=== PATIENT | female | born 1950 | race Caucasian/White ===

== ENCOUNTER 2017-07-31 09:02 | Outpatient (CLI) | payer MEDICARE, MEDICAID ==
[2017-07-31 18:30] LABS: BASOPHILS # (AUTO) 0.1 10^3/uL (0.0-0.1); BASOPHILS % (AUTO) 1.2 %; EOSINOPHILS # (AUTO) 0.1 10^3/uL (0.0-0.7); EOSINOPHILS % (AUTO) 1.6 %; HCT - HEMATOCRIT 39.2 % (37.0-47.0); HGB - HEMOGLOBIN 12.9 g/dL (12.0-16.0); LYMPHOCYTES # (AUTO) 2.3 10^3/uL (1.5-3.5); LYMPHOCYTES % (AUTO) 50.3 %; MEAN CORPUSCULAR HEMOGLOBIN 30.2 pg (27.0-31.0); MEAN CORPUSCULAR HGB CONC 32.8 g/dL (32.0-36.0); MEAN PLATELET VOLUME 8.6 fL (7.9-10.8); MONOCYTES # (AUTO) 0.5 10^3/uL (0.0-1.0); MONOCYTES % (AUTO) 9.7 %; NEUTROPHILS # (AUTO) 1.7 10^3/uL (1.5-6.6); NEUTROPHILS % (AUTO) 37.2 %; NUCLEATED RED BLOOD CELLS AUTO 0.1 /100WBC; RED BLOOD COUNT 4.26 10^6/uL (4.20-5.40); RED CELL DISTRIBUTION WIDTH 13.5 % (12.0-15.0); UNCORRECTED WHITE BLOOD COUNT 4.7 x10^3/uL; WHITE BLOOD COUNT 4.7 x10^3/uL (4.8-10.8)
[2017-07-31 19:01] LABS: ALBUMIN/GLOBULIN RATIO 1.8 (1.0-2.2); BILIRUBIN,TOTAL 0.6 mg/dL (0.2-1.0); BUN - BLOOD UREA NITROGEN 14 mg/dL (6-20); CALCIUM 9.2 mg/dL (8.5-10.3); CARBON DIOXIDE - CO2 30 mmol/L (21-32); CHLORIDE 99 mmol/L (101-111); CHOL/HDL RATIO 3.4 (<4.4); CHOLESTEROL 276 mg/dL; CREATININE 0.5 mg/dL (0.4-1.0); GFR - MDRD 123 (>89); GLUCOSE 100 mg/dL (70-100); HDL CHOLESTEROL 81 mg/dL; LDL/HDL RATIO 2.2 (<4.4); POTASSIUM 3.8 mmol/L (3.5-5.0); SODIUM 137 mmol/L (135-145); TOTAL PROTEIN 6.2 g/dL (6.7-8.2); TRIGLYCERIDES 77 mg/dL; VLDL CHOLESTEROL 15 mg/dL
== END 2017-07-31 09:03 | disposition home or self-care (01) ==
LOC: LAB.F 09:02
PROVIDERS: ATTEND Nurse Practitioner Family
DX: R53.83 Other fatigue (principal); E03.9 Hypothyroidism, unspecified; F32.9 Major depressive disorder, single episode, unspecified; E78.5 Hyperlipidemia, unspecified
CPT/HCPCS: 36415; 80053; 80061; 84443; 85025

== ENCOUNTER 2017-08-16 13:53 | Outpatient (CLI) | payer MEDICARE, MEDICAID | END 2017-08-16 13:54 | disposition home or self-care (01) | LOC: LAB.F 13:53 | PROVIDERS: ATTEND Nurse Practitioner Family | DX: E03.9 Hypothyroidism, unspecified (principal) | CPT/HCPCS: 36415; 84439 ==

== ENCOUNTER 2018-05-18 09:58 | Outpatient (CLI) | payer MEDICARE, MEDICAID ==
[2018-05-18 17:43] LABS: BASOPHILS # (AUTO) 0.1 10^3/uL (0.0-0.1); BASOPHILS % (AUTO) 1.5 %; EOSINOPHILS # (AUTO) 0.1 10^3/uL (0.0-0.7); EOSINOPHILS % (AUTO) 1.6 %; HGB - HEMOGLOBIN 13.4 g/dL (12.0-16.0); LYMPHOCYTES # (AUTO) 1.9 10^3/uL (1.5-3.5); LYMPHOCYTES % (AUTO) 37.4 %; MEAN CORPUSCULAR HEMOGLOBIN 30.2 pg (27.0-31.0); MEAN CORPUSCULAR VOLUME 91.5 fL (81.0-99.0); MEAN PLATELET VOLUME 8.4 fL (7.9-10.8); MONOCYTES # (AUTO) 0.6 10^3/uL (0.0-1.0); MONOCYTES % (AUTO) 11.2 %; NEUTROPHILS # (AUTO) 2.4 10^3/uL (1.5-6.6); NEUTROPHILS % (AUTO) 48.3 %; PLT - PLATELET COUNT 225 10^3/uL (130-450); RED BLOOD COUNT 4.45 10^6/uL (4.20-5.40); RED CELL DISTRIBUTION WIDTH 13.8 % (12.0-15.0); WHITE BLOOD COUNT 5.1 x10^3/uL (4.8-10.8)
[2018-05-18 18:24] LABS: ALBUMIN 4.5 g/dL (3.2-5.5); ALBUMIN/GLOBULIN RATIO 2.4 (1.0-2.2); BILIRUBIN,TOTAL 0.8 mg/dL (0.2-1.0); CALCIUM 9.4 mg/dL (8.5-10.3); CREATININE 0.6 mg/dL (0.4-1.0); TOTAL PROTEIN 6.4 g/dL (6.7-8.2)
== END 2018-05-18 09:59 | disposition home or self-care (01) ==
LOC: LAB.F 09:58
PROVIDERS: ATTEND Nurse Practitioner Family
DX: R53.83 Other fatigue (principal)
CPT/HCPCS: 36415; 80053; 85025

== ENCOUNTER 2018-12-06 18:09 | Emergency (ER) | payer MEDICARE, MEDICAID ==
[2018-12-06 18:25] VITALS: BP 146/102
[2018-12-06] MEDS ORDERED: IBUPROFEN 800 MG TABLET PO STA (18:54)
--- NOTE | 2018-12-06 18:59 | ED Physician Documentation ---
PD HPI UPPER EXT INJURY - Stated complaint Stated Complaint: LEFT WRIST PAIN - Chief complaint Chief Complaint: Ext Problem - History obtained from History obtained from: Patient - History of Present Illness Location: Left, Wrist Type of injury: Blunt / blow (hit on a table) Where injury occurred: Home Timing - onset: Yesterday Timing - duration: Days (2) Timing - details: Gradual onset Pain level max: 5 Pain level now: 3 Improved by: Rest Worsened by: Moving Associated symptoms: Swelling, Discolored (redness). No: Weakness, Numbness, Tingling Contributing factors: No: Anticoagulated, Prior ortho surgery, Prosthetic joint Recently seen: Not recently seen Review of Systems Constitutional: denies: Fever, Chills Skin: denies: Rash Musculoskeletal: denies: Neck pain, Back pain PD PAST MEDICAL HISTORY - Past Medical History Past Medical History: Yes Endocrine/Autoimmune: Other Other Past Medical History: chronic fatigue syndrome, fybromyalgia. - Allergies Allergies/Adverse Reactions: Allergies Allergy/AdvReac Type Severity Reaction Status Date / Time No Known Drug Allergies Allergy Verified 12/06/18 18:25 - Social History Does the pt smoke?: No Smoking Status: Never smoker Does the pt drink ETOH?: No Does the pt have substance abuse?: No PD ED PE NORMAL - Vitals Vital signs reviewed: Yes - General General: Alert and oriented X 3, No acute distress - HEENT HEENT: Moist mucous membranes - Derm Derm: Warm and dry - Extremities Extremities: Other (L wrist - Mild swelling and erythema to the volar aspect of the distal ulna of the left wrist. There is no bony tenderness over the hand, wrist radius or ulna. Full range of motion of all fingers. Neurovascular intact) - Neuro Neuro: Alert and oriented X 3 Results - Vitals Vitals: Vital Signs - 24 hr 12/06/18 18:20 Temperature 36.3 C L Heart Rate 80 Respiratory 16 Rate Blood Pressure 146/102 H O2 Saturation 98 Oxygen O2 Source Room air PD MEDICAL DECISION MAKING - ED course Complexity details: considered differential, d/w patient ED course: Patient appears to have a soft tissue contusion, possible tendon injury, but not significant enough to cause any functional limitations of the hand or wrist. She refuses an x-ray here. Will place in a Velcro wrist splint and follow-up with her doctor. Patient counseled regarding signs and symptoms for which I believe and urgent re-evaluation would be necessary. Patient with good understanding of and agreement to plan and is comfortable going home at this time This document was made in part using voice recognition software. While efforts are made to proofread this document, sound alike and grammatical errors may occur. Departure - Departure Disposition: 01 Home, Self Care Clinical Impression: Contusion of wrist, left Qualifiers: Encounter type: initial encounter Qualified Code(s): S60.212A - Contusion of left wrist, initial encounter Condition: Good Instructions: ED Contusion Upper Ext Follow-Up: Pearl Borjas ARNP [Primary Care Provider] - Within 1 week Comments: Wear the splint for comfort. You can use Motrin or Tylenol as needed for pain. Follow-up with your doctor within 1 week for repeat evaluation. As we discussed by not doing an x-ray, we may miss a fracture. As we also discussed this may be an early infection, monitor closely for worsening redness or swelling. Do not wear the splint for over a week. Discharge Date/Time: 12/06/18 19:12
== END 2018-12-06 19:12 | disposition home or self-care (01) ==
LOC: ED 18:09
DX: S60.212A Contusion of left wrist, initial encounter (principal); W22.09XA Striking against other stationary object, initial encounter; Y92.009 Unspecified place in unspecified non-institutional (private) residence as the place of occurrence of the external cause
CPT/HCPCS: 99282; 99283; A9270

== ENCOUNTER 2019-04-02 07:57 | Outpatient (CLI) | payer MEDICARE, MEDICAID ==
[2019-04-02 10:12] LABS: BASOPHILS # (AUTO) 0.1 10^3/uL (0.0-0.1); BASOPHILS % (AUTO) 1.7 %; EOSINOPHILS # (AUTO) 0.1 10^3/uL (0.0-0.7); EOSINOPHILS % (AUTO) 2.2 %; HGB - HEMOGLOBIN 13.2 g/dL (12.0-16.0); LYMPHOCYTES % (AUTO) 48.9 %; MEAN CORPUSCULAR HEMOGLOBIN 30.6 pg (27.0-31.0); MEAN CORPUSCULAR VOLUME 95.4 fL (81.0-99.0); MEAN PLATELET VOLUME 9.8 fL (7.9-10.8); MONOCYTES # (AUTO) 0.5 10^3/uL (0.0-1.0); MONOCYTES % (AUTO) 11.8 %; NEUTROPHILS # (AUTO) 1.5 10^3/uL (1.5-6.6); NEUTROPHILS % (AUTO) 35.2 %; PLT - PLATELET COUNT 238 10^3/uL (130-450); RED BLOOD COUNT 4.32 10^6/uL (4.20-5.40); RED CELL DISTRIBUTION WIDTH 14.2 % (12.0-15.0); WHITE BLOOD COUNT 4.2 x10^3/uL (4.8-10.8)
[2019-04-02 10:34] LABS: ALBUMIN 4.1 g/dL (3.2-5.5); ALBUMIN/GLOBULIN RATIO 1.9 (1.0-2.2); ALKALINE PHOSPHATASE 38 IU/L (42-121); ALT ALANINE AMINOTRANSFERASE 15 IU/L (10-60); AST ASPARTATE AMINOTRANSFERASE 17 IU/L (10-42); BILIRUBIN,TOTAL 0.6 mg/dL (0.2-1.0); BUN - BLOOD UREA NITROGEN 10 mg/dL (6-20); CALCIUM 9.3 mg/dL (8.5-10.3); CARBON DIOXIDE - CO2 27 mmol/L (21-32); CHLORIDE 101 mmol/L (101-111); CHOL/HDL RATIO 5.5 (<4.4); CHOLESTEROL 467 mg/dL; CREATININE 0.6 mg/dL (0.4-1.0); GFR - MDRD 99 (>89); GLUCOSE 107 mg/dL (70-100); HDL CHOLESTEROL 85 mg/dL; LDL CHOLESTEROL,CALCULATED 358 mg/dL; LDL/HDL RATIO 4.2 (<4.4); SODIUM 137 mmol/L (135-145); TOTAL PROTEIN 6.3 g/dL (6.7-8.2); VLDL CHOLESTEROL 24 mg/dL
[2019-04-02 10:35] LABS: CRP - C-REACTIVE PROTEIN < 1.0 mg/dL (0-1.0)
== END 2019-04-02 07:58 | disposition home or self-care (01) ==
LOC: LAB.S 07:57
PROVIDERS: ATTEND Registered Nurse
DX: M79.7 Fibromyalgia (principal); R53.83 Other fatigue; Z91.018 Allergy to other foods; J30.89 Other allergic rhinitis; E78.5 Hyperlipidemia, unspecified
CPT/HCPCS: 36415; 80053; 80061; 82306; 83036; 83721; 84443; 85025; 86140

== ENCOUNTER 2019-09-25 08:58 | Outpatient (CLI) | payer MEDICARE, MEDICAID ==
[2019-09-25 17:15] LABS: BASOPHILS # (AUTO) 0.1 10^3/uL (0.0-0.1); BASOPHILS % (AUTO) 1.2 %; EOSINOPHILS # (AUTO) 0.1 10^3/uL (0.0-0.7); EOSINOPHILS % (AUTO) 1.9 %; HGB - HEMOGLOBIN 13.1 g/dL (12.0-16.0); LYMPHOCYTES # (AUTO) 2.2 10^3/uL (1.5-3.5); LYMPHOCYTES % (AUTO) 54.1 %; MEAN CORPUSCULAR HEMOGLOBIN 29.1 pg (27.0-31.0); MEAN CORPUSCULAR HGB CONC 30.5 g/dL (32.0-36.0); MEAN CORPUSCULAR VOLUME 95.3 fL (81.0-99.0); MEAN PLATELET VOLUME 9.9 fL (7.9-10.8); MONOCYTES # (AUTO) 0.4 10^3/uL (0.0-1.0); MONOCYTES % (AUTO) 10.2 %; NEUTROPHILS # (AUTO) 1.3 10^3/uL (1.5-6.6); NEUTROPHILS % (AUTO) 32.6 %; PLT - PLATELET COUNT 223 10^3/uL (130-450); RED CELL DISTRIBUTION WIDTH 13.8 % (12.0-15.0); WHITE BLOOD COUNT 4.1 x10^3/uL (4.8-10.8)
[2019-09-25 17:35] LABS: ALBUMIN 4.2 g/dL (3.2-5.5); ALBUMIN/GLOBULIN RATIO 1.9 (1.0-2.2); ALKALINE PHOSPHATASE 36 IU/L (42-121); ALT ALANINE AMINOTRANSFERASE 19 IU/L (10-60); AST ASPARTATE AMINOTRANSFERASE 19 IU/L (10-42); BILIRUBIN,TOTAL 0.7 mg/dL (0.2-1.0); BUN - BLOOD UREA NITROGEN 10 mg/dL (6-20); CALCIUM 9.1 mg/dL (8.5-10.3); CARBON DIOXIDE - CO2 29 mmol/L (21-32); CHLORIDE 102 mmol/L (101-111); CHOL/HDL RATIO 3.8 (<4.4); CHOLESTEROL 376 mg/dL; CREATININE 0.5 mg/dL (0.4-1.0); GFR - MDRD 122 (>89); GLUCOSE 98 mg/dL (70-100); HDL CHOLESTEROL 98 mg/dL; LDL CHOLESTEROL,CALCULATED 261 mg/dL; LDL/HDL RATIO 2.7 (<4.4); SODIUM 138 mmol/L (135-145); TOTAL PROTEIN 6.4 g/dL (6.7-8.2); VLDL CHOLESTEROL 17 mg/dL
[2019-09-25 17:45] LABS: CRP - C-REACTIVE PROTEIN < 1.0 mg/dL (0-1.0)
== END 2019-09-25 08:59 | disposition home or self-care (01) ==
LOC: LAB.S 08:58
PROVIDERS: ATTEND Registered Nurse
DX: E78.5 Hyperlipidemia, unspecified (principal); I10 Essential (primary) hypertension; J45.909 Unspecified asthma, uncomplicated; Z91.018 Allergy to other foods; A69.20 Lyme disease, unspecified; R53.82 Chronic fatigue, unspecified; M79.7 Fibromyalgia
CPT/HCPCS: 36415; 80053; 80061; 81599; 82172; 82607; 83721; 84443; 85025; 86140

== ENCOUNTER 2020-06-01 10:35 | Outpatient (CLI) | payer MEDICARE, MEDICAID | END 2020-06-01 10:36 | disposition home or self-care (01) | LOC: COV 10:35 | PROVIDERS: ATTEND Ophthalmology | DX: Z01.812 Encounter for preprocedural laboratory examination (principal); Z20.828 Contact with and (suspected) exposure to other viral communicable diseases; H25.11 Age-related nuclear cataract, right eye ==

== ENCOUNTER 2020-06-04 07:27 | Day surgery (SDC) | payer MEDICARE, MEDICAID ==
[~2020-06-04 07:27] MED LIST: KETOROLAC 0.45% OPHTH DROPS ONE; PHENYLEPHRINE 2.5% OPHTH 2 ML DROPS ONE; PROPARACAINE 0.5% OPHTH DROPS 15 ML ONE
[2020-06-04] MEDS ORDERED: LACTATED RINGERS 500 ML IV ONE ×2 (08:01→08:42)
--- NOTE | 2020-06-04 08:05 | ANESTHESIA ---
Pre-Anesthesia VS, & Labs - Diagnosis R Nuclear Sclerotic Cataract - Procedure Extraction R cataract w/IOL Vital Signs: Temp Pulse Resp BP Pulse Ox 36.6 C 80 18 149/60 H 100 06/04/20 07:44 06/04/20 07:44 06/04/20 07:44 06/04/20 07:44 06/04/20 07:44 Height: 5 ft 10 in Weight (kg): 66.9 kg Body Mass Index: 21.1 BMI Classification: Healthy weight - Is Patient ?: No Home Medications and Allergies Home Medications: Ambulatory Orders No Known Home Medications 06/03/20 No Known Home Medications 06/03/20 Allergies/Adverse Reactions: Allergies Allergy/AdvReac Type Severity Reaction Status Date / Time No Known Drug Allergies Allergy Verified 12/06/18 18:25 Anes History & Medical History - Anesthetic History Anesthesia Complications: reports: No previous complications Family history of Anesthesia Complications: Denies Family history of Malignant Hyperthermia: Denies - Medical History Cardiovascular: reports: None Pulmonary: reports: None Gastrointestinal: reports: None Urinary: reports: None Musculoskeletal: reports: None Endocrine/Autoimmune: reports: None Skin: reports: None Smoking Status: Never smoker History of Cancer?: No - Surgical History General: Colonoscopy Eyes Ears Nose Throat (EENT): Tonsil/Adenoidectomy Cardiothoracic: Other Gynecologic: Tubal ligation Exam General: Alert, Oriented x3, Cooperative Mouth Openin Fingerbreadth Neck Mobility: Normal Mallampati classification: II Respiratory: Lungs clear, No respiratory distress Cardiovascular: Regular rate Neurological: Normal speech Mental/Cognitive Status: Alert/Oriented X3, Normal for patient Cognitive Status: Within normal limits Plan Anesthesia Type: MAC Consent for Procedure(s) Verified and Reviewed: Yes Code Status: Attempt Resuscitation ASA classification: 2-Mild systemic disease Is this case an emergency?: No
[2020-06-04] MEDS ORDERED: BRIMONIDINE 0.2% OPHTH DROPS 5 ML OPTH ONE ×2 (08:12→08:24)
[2020-06-04] MEDS ORDERED: CHONDR SULF/HYALURONATE SYRINGE IO ONE ×2 (08:13→08:24)
[2020-06-04] MEDS ORDERED: EPINEPHrine 1 MG/ML AMP IR ONE ×2 (08:13→08:24)
[2020-06-04] MEDS ORDERED: TRIAMCIN/MOXIFLOX OPHTHALMIC 0.6 ML VIAL IO ONE ×3 (08:13→10:32)
[2020-06-04] MEDS ORDERED: BSS/LIDOCAINE/EPINEPHRINE 1 ML SYRINGE IO ONE ×2 (08:13→08:24)
[2020-06-04] MEDS ORDERED: TIMOLOL 0.5% OPHTH DROPS OPTH ONE ×2 (08:13→08:24)
[2020-06-04] MEDS ORDERED: PROPARACAINE 0.5% OPHTH DROPS 15 ML EACHEYE ONE ×2 (08:14→08:24)
[2020-06-04] MEDS ORDERED: VANCOMYCIN OPHTHALMI 8MG/0.8ML 8 MG/0.8 ML SYRINGE IO ONE ×3 (08:14→10:33)
[2020-06-04] MEDS ORDERED: MIDAZOLAM 2 MG/2 ML VIAL IVP ONE (08:23)
[2020-06-04 09:00] VITALS: BP 124/65
[2020-06-04] MEDS ORDERED: TIMOLOL 0.5% OPHTH DROPS ONE (10:33)
[2020-06-04] MEDS ORDERED: BRIMONIDINE 0.2% OPHTH DROPS 5 ML ONE (10:33)
[2020-06-04] MEDS ORDERED: BSS/LIDOCAINE/EPINEPHRINE 1 ML SYRINGE ONE (10:33)
--- NOTE | 2020-06-04 11:09 | ANESTHESIA POST OP EVALUATION ---
Anesthesia Post Eval - Post Anesthesia Eval Vitals: Last Vital Signs Temp 36.1 C L 06/04/20 08:59 Pulse 62 06/04/20 08:59 Resp 11 L 06/04/20 08:59 BP 124/65 06/04/20 08:59 Pulse Ox 100 06/04/20 08:59 CV Function Including HR & BP: positive: Stable Pain Control: positive: Satisfactory Nausea & Vomiting: positive: Negative Mental Status: positive: Baseline Respiratory Status: Airway Patent Hydration Status: Satisfactory Anesthesia Complications: positive: None
--- NOTE | 2020-06-04 15:54 | OPERATIVE REPORT ---
DATE OF SERVICE: 06/04/2020 Physician: Abdelrahman Jarvis MD PREOPERATIVE DIAGNOSIS: Visually significant cataract, right eye. This was her first cataract surgery. POSTOPERATIVE DIAGNOSIS: Visually significant cataract, right eye. This was her first cataract surgery. PROCEDURE: Phacoemulsification with posterior chamber intraocular lens implant, right eye. SURGEON: Abdelrahman Jarvis MD ANESTHESIA: Monitored anesthesia care. COMPLICATIONS: None. OPERATIVE INDICATIONS: This is a 70-year-old woman with progressive vision loss in the right eye due to 2+ nuclear sclerotic cataract. Best corrected visual acuity was 20/40, with glare to 20/250 in the right eye. Indications for surgery are overall decrease in vision, difficulty seeing words on a computer screen, difficulty reading, difficulty seeing words, closed caption or game scores on TV, difficulty seeing street signs, difficulty driving in low light or at night, difficulty driving at night because of headlights from other vehicles, and difficulty with glare or bright lights in any situation. She was consented at length concerning risks and benefits of cataract surgery, after which she expressed a desire to proceed with surgery. OPERATIVE PROCEDURE: The patient was taken to OR #3 and placed under monitored anesthesia care. A surgical timeout was conducted confirming correct patient, correct procedure, and correct surgical site. She was given topical anesthesia, and prepped and draped in the usual sterile fashion. The eye was entered at the 12 and 9 o'clock positions. Intracameral Shugarcaine was injected into the anterior chamber, followed by Viscoat. A continuous-tear curvilinear capsulorrhexis was performed. The nucleus was hydrodissected and phacoemulsified. The cortex was evacuated using automated infusion and aspiration. Provisc was injected in the capsular bag, and a 22.0 diopter toric intraocular lens was inserted into the bag and rotated to axis 076 that had been premarked on the cornea in the PACU with a corneal marker. Infusion and aspiration was used to evacuate the viscoelastic materials. The eye was inflated to physiologic pressure using balanced salt solution and found to be watertight. Approximately 0.25 mL of a mixture of triamcinolone and moxifloxacin was injected transsclerally into the vitreous in inferotemporal quadrant. An additional 0.55 mL of a mixture of triamcinolone, moxifloxacin, and vancomycin was injected subconjunctivally in the superior quadrant for infection and inflammation prophylaxis. Wound integrity was checked with Weck- Hayley sponges. The IOL was again verified to be in the proper axis of 076. The patient was taken from the Operating Room in good condition and given postoperative instructions. TD: 06/04/2020 08:51 FREDDIE
== END 2020-06-04 07:28 | disposition home or self-care (01) ==
LOC: SDS 07:27
PROVIDERS: ATTEND Ophthalmology
DX: H25.11 Age-related nuclear cataract, right eye (principal); J45.909 Unspecified asthma, uncomplicated
CPT/HCPCS: 66984; A9270; J3490; J7120; V2632

== ENCOUNTER 2020-06-09 08:33 | Outpatient (CLI) | payer MEDICARE, MEDICAID ==
[2020-06-09 15:14] LABS: BASOPHILS # (AUTO) 0.1 10^3/uL (0.0-0.1); BASOPHILS % (AUTO) 1.2 %; EOSINOPHILS # (AUTO) 0.1 10^3/uL (0.0-0.7); HGB - HEMOGLOBIN 12.4 g/dL (12.0-16.0); LYMPHOCYTES # (AUTO) 2.2 10^3/uL (1.5-3.5); LYMPHOCYTES % (AUTO) 54.3 %; MEAN CORPUSCULAR HEMOGLOBIN 29.6 pg (27.0-31.0); MEAN CORPUSCULAR HGB CONC 31.2 g/dL (32.0-36.0); MEAN CORPUSCULAR VOLUME 94.7 fL (81.0-99.0); MEAN PLATELET VOLUME 9.8 fL (7.9-10.8); MONOCYTES # (AUTO) 0.3 10^3/uL (0.0-1.0); MONOCYTES % (AUTO) 8.1 %; NEUTROPHILS # (AUTO) 1.4 10^3/uL (1.5-6.6); NEUTROPHILS % (AUTO) 34.2 %; PLT - PLATELET COUNT 228 10^3/uL (130-450); RED BLOOD COUNT 4.19 10^6/uL (4.20-5.40); RED CELL DISTRIBUTION WIDTH 13.5 % (12.0-15.0); WHITE BLOOD COUNT 4.1 x10^3/uL (4.8-10.8)
[2020-06-09 15:39] LABS: ALBUMIN/GLOBULIN RATIO 2.1 (1.0-2.2); ALKALINE PHOSPHATASE 35 IU/L (42-121); ALT ALANINE AMINOTRANSFERASE 18 IU/L (10-60); AST ASPARTATE AMINOTRANSFERASE 18 IU/L (10-42); BILIRUBIN,TOTAL 0.9 mg/dL (0.2-1.0); BUN - BLOOD UREA NITROGEN 14 mg/dL (6-20); CALCIUM 9.1 mg/dL (8.5-10.3); CARBON DIOXIDE - CO2 28 mmol/L (21-32); CHLORIDE 100 mmol/L (101-111); CHOL/HDL RATIO 3.4 (<4.4); CHOLESTEROL 350 mg/dL; CREATININE 0.5 mg/dL (0.4-1.0); GLUCOSE 91 mg/dL (70-100); HDL CHOLESTEROL 103 mg/dL; LDL CHOLESTEROL,CALCULATED 230 mg/dL; LDL/HDL RATIO 2.2 (<4.4); SODIUM 137 mmol/L (135-145); TOTAL PROTEIN 5.9 g/dL (6.7-8.2); VLDL CHOLESTEROL 17 mg/dL
== END 2020-06-09 08:34 | disposition home or self-care (01) ==
LOC: LAB.S 08:33
PROVIDERS: ATTEND Registered Nurse
DX: E78.5 Hyperlipidemia, unspecified (principal); J45.909 Unspecified asthma, uncomplicated; M79.7 Fibromyalgia; R53.83 Other fatigue
CPT/HCPCS: 36415; 80053; 80061; 83721; 84443; 85025

== ENCOUNTER 2020-07-17 15:59 | Outpatient (CLI) | payer MEDICARE, MEDICAID | END 2020-07-17 16:00 | disposition home or self-care (01) | LOC: COV 15:59 | PROVIDERS: ATTEND Ophthalmology | DX: Z01.812 Encounter for preprocedural laboratory examination (principal); H25.12 Age-related nuclear cataract, left eye; Z20.828 Contact with and (suspected) exposure to other viral communicable diseases ==

== ENCOUNTER 2020-07-23 07:28 | Day surgery (SDC) | payer MEDICARE, MEDICAID ==
[2020-07-23] MEDS ORDERED: LACTATED RINGERS 500 ML IV ONE ×2 (08:15→08:46)
--- NOTE | 2020-07-23 08:20 | ANESTHESIA ---
Pre-Anesthesia VS, & Labs - Diagnosis left eye nuclear sclerotic cataract - Procedure left eye cataract extraction with IOL Vital Signs: Temp Pulse Resp BP Pulse Ox 36.3 C L 72 16 150/70 H 99 07/23/20 07:30 07/23/20 07:30 07/23/20 07:30 07/23/20 07:30 07/23/20 07:30 Height: 5 ft 10 in Weight (kg): 67.7 kg Body Mass Index: 21.4 BMI Classification: Healthy weight - NPO >8 hours - Is Patient ?: No Home Medications and Allergies No Known Home Medications 06/03/20 Allergies/Adverse Reactions: Allergies Allergy/AdvReac Type Severity Reaction Status Date / Time No Known Drug Allergies Allergy Verified 12/06/18 18:25 Anes History & Medical History - Anesthetic History Anesthesia Complications: reports: No previous complications - Medical History Cardiovascular: reports: None Pulmonary: reports: None Gastrointestinal: reports: None Urinary: reports: None Neuro: reports: None Musculoskeletal: reports: None Endocrine/Autoimmune: reports: Other Blood Disorders: reports: None Skin: reports: None Smoking Status: Never smoker Psychosocial: reports: No issues indicated History of Cancer?: No - Surgical History General: Colonoscopy Eyes Ears Nose Throat (EENT): Tonsil/Adenoidectomy Cardiothoracic: Other Gynecologic: Tubal ligation Exam General: Alert, Oriented x3, Cooperative, No acute distress Dental: WNL Mouth Openin Fingerbreadth Neck Mobility: Normal Mallampati classification: I Thyromental Distance: 4-6 cm Mental/Cognitive Status: Alert/Oriented X3, Normal for patient Plan Anesthesia Type: MAC Consent for Procedure(s) Verified and Reviewed: Yes Code Status: Attempt Resuscitation ASA classification: 1-Healthy patient Is this case an emergency?: No
[2020-07-23] MEDS ORDERED: MIDAZOLAM 2 MG/2 ML VIAL IVP ONE (08:26)
[2020-07-23] MEDS ORDERED: VANCOMYCIN OPHTHALMI 8MG/0.8ML 8 MG/0.8 ML SYRINGE IO ONE ×2 (08:34→10:34)
[2020-07-23] MEDS ORDERED: TRIAMCIN/MOXIFLOX OPHTHALMIC 0.6 ML VIAL IO ONE ×2 (08:34→10:33)
[2020-07-23] MEDS ORDERED: CHONDR SULF/HYALURONATE SYRINGE IO ONE (08:34)
[2020-07-23] MEDS ORDERED: EPINEPHrine 1 MG/ML AMP IR ONE (08:34)
[2020-07-23] MEDS ORDERED: BSS/LIDOCAINE/EPINEPHRINE 1 ML SYRINGE IO ONE (08:34)
[2020-07-23] MEDS ORDERED: BRIMONIDINE 0.2% OPHTH DROPS 5 ML OPTH ONE (08:34)
[2020-07-23] MEDS ORDERED: TIMOLOL 0.5% OPHTH DROPS OPTH ONE (08:34)
[2020-07-23] MEDS ORDERED: PROPARACAINE 0.5% OPHTH DROPS 15 ML EACHEYE ONE (08:34)
[2020-07-23 08:59] VITALS: BP 120/67
[2020-07-23] MEDS ORDERED: BRIMONIDINE 0.2% OPHTH DROPS 5 ML ONE (10:33)
[2020-07-23] MEDS ORDERED: EPINEPHrine 1 MG/ML AMP ONE (10:33)
[2020-07-23] MEDS ORDERED: TIMOLOL 0.5% OPHTH DROPS ONE (10:33)
[2020-07-23] MEDS ORDERED: BSS/LIDOCAINE/EPINEPHRINE 1 ML SYRINGE ONE (10:34)
--- NOTE | 2020-07-23 10:53 | OPERATIVE REPORT ---
DATE OF SERVICE: 07/23/2020 Physician: Abdelrahman Jarvis MD PREOPERATIVE DIAGNOSIS: Visually significant cataract, left eye. Cataract surgery was performed on the right eye on 06/04/2020. POSTOPERATIVE DIAGNOSIS: Visually significant cataract, left eye. Cataract surgery was performed on the right eye on 06/04/2020. PROCEDURE: Phacoemulsification with posterior chamber intraocular lens implant, left eye. SURGEON: Abdelrahman Jarvis MD. ANESTHESIA: Monitored anesthesia care. COMPLICATIONS: None. OPERATIVE INDICATIONS: This is a 70-year-old woman with progressive vision loss in the left eye due to 2+ nuclear sclerotic cataract. Best corrected visual acuity was 20/40 with glare to 20/200 in the left eye. Indications for surgery are overall decrease in vision, difficulty seeing words on a comp uter screen, difficulty reading, difficulty seeing words, closed caption or game scores on TV, diffic ulty seeing street signs, difficulty driving in low light or at night, difficulty driving at night be cause of headlights from other vehicles, and difficulty with glare or bright lights in any situation. She was consented at length concerning risks and benefits of cataract surgery, after which she expr essed a desire to proceed with surgery. OPERATIVE PROCEDURE: The patient was taken in to OR #3 and placed under monitored anesthesia care. A surgical timeout was conducted confirming correct patient, correct procedure, and correct surgical site. She was given topical anesthesia and prepped and draped in usual sterile fashion. The eye was entered at the 6 and 3 o'clock positions. Intracameral Shugarcaine was injected into the anterior c hamber followed by Viscoat. A continuous-tear curvilinear capsulorrhexis was performed. The nucleus was hydrodissected and phacoemulsified. The cortex was evacuated using automated infusion and aspir ation. Provisc was injected in the capsular bag, and a 22.0 diopter Toric intraocular lens was inser johnson into the bag and rotated to axis 106, which had been previously marked on the cornea with a Brayden marker. Infusion and aspiration were used to evacuate the viscoelastic materials. The eye was infl ated to physiologic pressure using balanced salt solution and found to be watertight. The axis of th e lens was verified to be at axis 106. Approximately 0.25 mL of a mixture of triamcinolone and moxif loxacin was injected transsclerally into the vitreous in the inferotemporal quadrant. An additional 0.55 mL of a mixture of triamcinolone, moxifloxacin, and vancomycin was injected subconjunctivally in the superior quadrant for infection and inflammation prophylaxis. Wound integrity was checked with Weck-Hayley sponges. The axis of the IOL was again verified to be 106. Patient was taken from the oper ating room in good condition and given postoperative instructions. TD: 07/23/2020 09:01
--- NOTE | 2020-07-23 12:05 | ANESTHESIA POST OP EVALUATION ---
Anesthesia Post Eval - Post Anesthesia Eval Vitals: Last Vital Signs Temp 36.8 C 07/23/20 08:46 Pulse 66 07/23/20 08:59 Resp 14 07/23/20 08:59 BP 120/67 07/23/20 08:59 Pulse Ox 99 07/23/20 08:59 CV Function Including HR & BP: positive: Stable Pain Control: positive: Satisfactory Nausea & Vomiting: positive: Negative Mental Status: positive: Baseline Respiratory Status: Airway Patent Hydration Status: Satisfactory Anesthesia Complications: positive: None
== END 2020-07-23 07:29 | disposition home or self-care (01) ==
LOC: SDS 07:28
PROVIDERS: ATTEND Ophthalmology
DX: H25.12 Age-related nuclear cataract, left eye (principal); J45.909 Unspecified asthma, uncomplicated; G47.00 Insomnia, unspecified; Z87.891 Personal history of nicotine dependence

== ENCOUNTER 2021-04-23 12:35 | Outpatient (CLI) | payer MEDICARE, MEDICAID | END 2021-04-23 12:36 | disposition EMS.NT | LOC: EMS 12:35 | DX: R55 Syncope and collapse (principal) ==

== ENCOUNTER 2021-06-15 07:18 | Outpatient (CLI) | payer MEDICARE, MEDICAID ==
[2021-06-15 14:24] LABS: BASOPHILS # (AUTO) 0.1 10^3/uL (0.0-0.1); BASOPHILS % (AUTO) 1.7 %; EOSINOPHILS # (AUTO) 0.1 10^3/uL (0.0-0.7); EOSINOPHILS % (AUTO) 2.2 %; HCT - HEMATOCRIT 41.5 % (37.0-47.0); HGB - HEMOGLOBIN 13.2 g/dL (12.0-16.0); LYMPHOCYTES # (AUTO) 2.1 10^3/uL (1.5-3.5); LYMPHOCYTES % (AUTO) 51.4 %; MEAN CORPUSCULAR HEMOGLOBIN 30.6 pg (27.0-31.0); MEAN CORPUSCULAR HGB CONC 31.8 g/dL (32.0-36.0); MEAN CORPUSCULAR VOLUME 96.1 fL (81.0-99.0); MEAN PLATELET VOLUME 12.1 fL (7.9-10.8); MONOCYTES # (AUTO) 0.4 10^3/uL (0.0-1.0); MONOCYTES % (AUTO) 10.1 %; NEUTROPHILS # (AUTO) 1.4 10^3/uL (1.5-6.6); NEUTROPHILS % (AUTO) 34.6 %; PLT - PLATELET COUNT 255 10^3/uL (130-450); RED BLOOD COUNT 4.32 10^6/uL (4.20-5.40); RED CELL DISTRIBUTION WIDTH 14.6 % (12.0-15.0); WHITE BLOOD COUNT 4.2 x10^3/uL (4.8-10.8)
[2021-06-15 14:58] LABS: ALBUMIN 4.4 g/dL (3.2-5.5); ALKALINE PHOSPHATASE 24 IU/L (42-121); ALT ALANINE AMINOTRANSFERASE 29 IU/L (10-60); AST ASPARTATE AMINOTRANSFERASE 24 IU/L (10-42); BILIRUBIN,TOTAL 0.9 mg/dL (0.2-1.0); BUN - BLOOD UREA NITROGEN 13 mg/dL (6-20); CALCIUM 9.7 mg/dL (8.5-10.3); CARBON DIOXIDE - CO2 30 mmol/L (21-32); CHLORIDE 99 mmol/L (101-111); CHOL/HDL RATIO 3.7 (<4.4); CHOLESTEROL 385 mg/dL; CREATININE 0.5 mg/dL (0.4-1.0); GFR - MDRD 121 (>89); GLUCOSE 104 mg/dL (70-100); HDL CHOLESTEROL 104 mg/dL; LDL CHOLESTEROL,CALCULATED 260 mg/dL; LDL/HDL RATIO 2.5 (<4.4); POTASSIUM 3.8 mmol/L (3.5-5.0); SODIUM 137 mmol/L (135-145); TOTAL PROTEIN 6.6 g/dL (6.7-8.2); TRIGLYCERIDES 104 mg/dL; VLDL CHOLESTEROL 21 mg/dL
[2021-06-15 15:03] LABS: THYROID STIMULATING HORMONE 4.49 uIU/mL (0.34-5.60)
== END 2021-06-15 07:19 | disposition home or self-care (01) ==
LOC: LAB.S 07:18
PROVIDERS: ATTEND Registered Nurse
DX: E78.5 Hyperlipidemia, unspecified (principal); R53.82 Chronic fatigue, unspecified; Z79.899 Other long term (current) drug therapy
CPT/HCPCS: 36415; 80053; 80061; 82306; 83721; 84443; 85025

== ENCOUNTER 2022-08-31 08:13 | Outpatient (CLI) | payer MEDICARE, MEDICAID ==
[2022-08-31 14:13] LABS: BASOPHILS # (AUTO) 0.1 10^3/uL (0.0-0.1); BASOPHILS % (AUTO) 1.9 %; EOSINOPHILS # (AUTO) 0.1 10^3/uL (0.0-0.7); EOSINOPHILS % (AUTO) 2.3 %; HCT - HEMATOCRIT 41.7 % (37.0-47.0); HGB - HEMOGLOBIN 12.8 g/dL (12.0-16.0); LYMPHOCYTES # (AUTO) 2.7 10^3/uL (1.5-3.5); LYMPHOCYTES % (AUTO) 51.7 %; MEAN CORPUSCULAR HEMOGLOBIN 28.9 pg (27.0-31.0); MEAN CORPUSCULAR HGB CONC 30.7 g/dL (32.0-36.0); MEAN CORPUSCULAR VOLUME 94.1 fL (81.0-99.0); MEAN PLATELET VOLUME 11.8 fL (7.9-10.8); MONOCYTES # (AUTO) 0.6 10^3/uL (0.0-1.0); MONOCYTES % (AUTO) 11.8 %; NEUTROPHILS # (AUTO) 1.7 10^3/uL (1.5-6.6); NEUTROPHILS % (AUTO) 32.1 %; PLT - PLATELET COUNT 210 10^3/uL (130-450); RED BLOOD COUNT 4.43 10^6/uL (4.20-5.40); WHITE BLOOD COUNT 5.2 x10^3/uL (4.8-10.8)
[2022-08-31 16:24] LABS: ALBUMIN 4.2 g/dL (3.2-5.5); ALBUMIN/GLOBULIN RATIO 1.8 (1.0-2.2); ALKALINE PHOSPHATASE 28 IU/L (42-121); ALT ALANINE AMINOTRANSFERASE 20 IU/L (10-60); AST ASPARTATE AMINOTRANSFERASE 21 IU/L (10-42); BILIRUBIN,TOTAL 0.7 mg/dL (0.2-1.0); BUN - BLOOD UREA NITROGEN 17 mg/dL (6-20); CALCIUM 9.4 mg/dL (8.5-10.3); CARBON DIOXIDE - CO2 33 mmol/L (21-32); CHLORIDE 97 mmol/L (101-111); CHOLESTEROL 322 mg/dL; CREATININE 0.7 mg/dL (0.4-1.0); GFR - MDRD 82 (>89); GLUCOSE 93 mg/dL (70-100); HDL CHOLESTEROL 109 mg/dL; LDL CHOLESTEROL,CALCULATED 201 mg/dL; LDL/HDL RATIO 1.8 (<4.4); POTASSIUM 3.7 mmol/L (3.5-5.0); SODIUM 139 mmol/L (135-145); TOTAL PROTEIN 6.5 g/dL (6.7-8.2); TRIGLYCERIDES 60 mg/dL; VLDL CHOLESTEROL 12 mg/dL
[2022-08-31 17:18] LABS: THYROID STIMULATING HORMONE 5.52 uIU/mL (0.34-5.60)
== END 2022-08-31 08:14 | disposition home or self-care (01) ==
LOC: LAB.S 08:13
PROVIDERS: ATTEND Registered Nurse
DX: Z79.899 Other long term (current) drug therapy (principal); Z13.220 Encounter for screening for lipoid disorders; R53.83 Other fatigue; Z13.29 Encounter for screening for other suspected endocrine disorder
CPT/HCPCS: 36415; 80053; 80061; 82306; 83721; 84443; 85025

== ENCOUNTER 2022-09-08 11:55 | Outpatient (CLI) | payer MEDICARE, MEDICAID | END 2022-09-08 11:56 | disposition home or self-care (01) | LOC: LAB.S 11:55 | PROVIDERS: ATTEND Registered Nurse | DX: E83.39 Other disorders of phosphorus metabolism (principal) | CPT/HCPCS: 36415; 82607; 83970; 84425 ==

== ENCOUNTER 2023-01-23 09:03 | Outpatient (CLI) | payer MEDICARE, MEDICAID ==
[2023-01-23 14:49] LABS: CHOL/HDL RATIO 3.2 (<4.4); CHOLESTEROL 329 mg/dL; HDL CHOLESTEROL 104 mg/dL; LDL CHOLESTEROL,CALCULATED 207 mg/dL; TRIGLYCERIDES 88 mg/dL; VLDL CHOLESTEROL 18 mg/dL
[2023-01-23 14:51] LABS: T4 (THYROXINE) 5.52 ug/dL (6.09-12.23)
[2023-01-23 14:57] LABS: THYROID STIMULATING HORMONE 2.22 uIU/mL (0.34-5.60)
== END 2023-01-23 09:04 | disposition home or self-care (01) ==
LOC: LAB.S 09:03
PROVIDERS: ATTEND Registered Nurse
DX: Z13.29 Encounter for screening for other suspected endocrine disorder (principal); Z13.220 Encounter for screening for lipoid disorders; R53.82 Chronic fatigue, unspecified
CPT/HCPCS: 36415; 80061; 83721; 84436; 84443; 84480

== ENCOUNTER 2023-06-12 11:52 | Outpatient (CLI) | payer MEDICARE, MEDICAID ==
--- NOTE | 2023-06-12 14:38 | XRAY Report ---
PROCEDURE: Cervical Spine Comp w/Flex/Ext INDICATIONS: NECK PAIN,SHOULDER PAIN TECHNIQUE: 7 views of the cervical spine were acquired. COMPARISON: None. FINDINGS: Bones: No fractures or dislocations to the C7 level. No suspicious bony lesions. There is normal r terrence of motion between flexion and extension, with preserved normal bony alignment. Mild reversal of the normal cervical lordosis. Moderate disc height loss at C5-C6, C6-7. Mild disc height loss at emelia ining levels. Mild, multilevel facet arthrosis, most prominent at C5-6 and C6-7. Soft tissues: Prevertebral soft tissues are normal in thickness. IMPRESSION: Mild to moderate, multilevel degenerative disc disease and facet arthrosis, most prominent at C5-C7. Reviewed by: Pascual Sarah on 06/12/2023 2:37 PM PDT Approved by: Pascual Sarah on 06/12/2023 2:37 PM PDT Station ID: [id number]
== END 2023-06-12 11:53 | disposition home or self-care (01) ==
LOC: DI.S 11:52
PROVIDERS: ATTEND Registered Nurse
DX: M50.322 Other cervical disc degeneration at C5-C6 level (principal); M47.812 Spondylosis without myelopathy or radiculopathy, cervical region; M25.511 Pain in right shoulder; G89.29 Other chronic pain

== ENCOUNTER 2023-06-22 09:29 | Outpatient (CLI) | payer MEDICARE, MEDICAID ==
--- NOTE | 2023-06-22 12:11 | MRI Report ---
PROCEDURE: CERVICAL SPINE WO INDICATIONS: NECK PAIN TECHNIQUE: Noncontrast sagittal T1 spin echo and T2 fast spin echo, sagittal STIR, foraminal oblique sagittal T2 fast spin echo, and axial gradient echo or T2 fast spin echo through the cervical spine. COMPARISON: None. FINDINGS: Image quality: Excellent. Alignment and Curvature: There is normal bony alignment. Bone Marrow: Marrow demonstrates normal overall signal. Mild anterior vertebral body height loss of C5 on C6 and C7 results in reversal of normal lordotic curve. Spinal Cord: Visualized spinal cord has normal size and signal. No cerebellar tonsillar herniation. Paraspinous Soft Tissues: No paravertebral masses. Prevertebral soft tissues are normal in thicknes s. C2-C3: Left facet hypertrophy. No canal stenosis. Moderate left foraminal narrowing with flattening deformity on the exiting left C3 nerve root. C3-C4: No canal stenosis or foraminal stenosis. C4-C5: Disc bulge. No canal stenosis. No foraminal stenosis. C5-C6: Chronic disc height loss. Disc bulge indents on the ventral cord. AP diameter of the central canal is 8.8 mm. Mild bilateral uncovertebral joint hypertrophy. Mild to moderate left foraminal narr owing. C6-C7: Chronic disc height loss. No canal stenosis. AP diameter of the central canal is 11.3 mm. No right foraminal narrowing. Mild to moderate left foraminal narrowing. C7-T1: Normal in appearance. IMPRESSION: 1. Reversal of normal lordotic curve of cervical spine secondary to mild chronic anterior vertebral b damian height loss of C5, C6, and C7. 2. At C5-C6, there is mild to moderate canal stenosis. 3. Multilevel foraminal narrowing as described above. Findings include moderate left foraminal narrow ing at C2-C3. Reviewed by: Rony Jalloh MD on 06/22/2023 12:09 PM PST Approved by: Rony Jalloh MD on 06/22/2023 12:09 PM PST Station ID: [id number]
== END 2023-06-22 09:30 | disposition home or self-care (01) ==
LOC: DI 09:29
PROVIDERS: ATTEND Registered Nurse
DX: M50.122 Cervical disc disorder at C5-C6 level with radiculopathy (principal); M48.02 Spinal stenosis, cervical region

== ENCOUNTER 2023-11-09 10:48 | Outpatient (CLI) | payer MEDICARE, MEDICAID ==
--- NOTE | 2023-11-09 15:52 | DEXA Report ---
PROCEDURE: Dexa Spine and/or Hip INDICATIONS: POST MENOPAUSAL TECHNIQUE: Dual energy x-ray absorptiometry (DXA) was performed on a [employer] System. Regions measur ed are the AP Spine, femoral neck, and if needed forearm. COMPARISON: None FINDINGS: Lumbar Spine: Bone Mineral Density: 0.826 g/cm/cm,T score: -2.9. Osteoporosis Left Femoral Neck: Bone Mineral Density: 0.661 g/cm/cm, T score: -2.7, osteoporosis. Left Hip: Bone Mineral Density: 0.663 g/cm/cm,T score: -2.7. Osteoporosis (T score greater or equal to -1.0: NORMAL) (T score from -1.1 to -2.4: OSTEOPENIA) (T score less than or equal to -2.5 to: OSTEOPOROSIS) Impression: By WHO criteria, this patient has osteoporosis. Patients with diagnosis of osteoporosis or osteopenia should have regular bone mineral density assess ment. For those eligible for Medicare, routine testing is allowed once every 2 years. Testing frequ ency can be increased for patients who have rapidly progressing disease or for those who are receivin g medical therapy to restore bone mass. Reviewed by: Gladys Chaparro MD on 11/09/2023 3:51 PM PDT Approved by: Gladys Chaparro MD on 11/09/2023 3:51 PM PDT Station ID: [id number]
== END 2023-11-09 10:49 | disposition home or self-care (01) ==
LOC: DI 10:48
PROVIDERS: ATTEND Registered Nurse
DX: M81.0 Age-related osteoporosis without current pathological fracture (principal); Z78.0 Asymptomatic menopausal state

== ENCOUNTER 2023-11-27 18:04 | Outpatient (CLI) | payer MEDICARE, MEDICAID ==
--- NOTE | 2023-11-28 22:17 | XRAY Report ---
PROCEDURE: Hand 1-2V RT INDICATIONS: ARTHRITIS RT HAND TECHNIQUE: 3 view(s) of the hand(s) acquired. COMPARISON: None FINDINGS: Bones: No fractures or dislocations. No suspicious bony lesions. Soft tissues: No suspicious soft tissue calcifications. IMPRESSION: Unremarkable hand radiographs Reviewed by: Terrance Martins MD on 11/28/2023 9:16 PM AKDT Approved by: Terrance Martins MD on 11/28/2023 9:16 PM AKDT Station ID: [id number]
--- NOTE | 2023-11-28 22:18 | XRAY Report ---
PROCEDURE: Knee 3V BL INDICATIONS: KNEE JOINT PAIN TECHNIQUE: 3 views of the knee was obtained. COMPARISON: None FINDINGS: Bones: No fractures or dislocations. No suspicious bony lesions. Moderate degenerative medial hector rtment joint space narrowing Soft tissues: No knee joint effusion. No suspicious soft tissue calcifications or masses. IMPRESSION: Moderate medial compartmental joint space narrowing Reviewed by: Terrance Martins MD on 11/28/2023 9:16 PM AKDT Approved by: Terrance Martins MD on 11/28/2023 9:16 PM AKDT Station ID: [id number]
== END 2023-11-27 18:05 | disposition home or self-care (01) ==
LOC: DI.S 18:04
PROVIDERS: ATTEND Internal Medicine
DX: M13.841 Other specified arthritis, right hand (principal); M25.862 Other specified joint disorders, left knee; M25.861 Other specified joint disorders, right knee

== ENCOUNTER 2024-01-01 07:43 | Outpatient (CLI) | payer MEDICARE, MEDICAID ==
[2024-01-01 15:12] LABS: BASOPHILS # (AUTO) 0.1 10^3/uL (0.0-0.1); BASOPHILS % (AUTO) 1.9 %; EOSINOPHILS # (AUTO) 0.1 10^3/uL (0.0-0.7); EOSINOPHILS % (AUTO) 2.6 %; HCT - HEMATOCRIT 40.7 % (37.0-47.0); HGB - HEMOGLOBIN 12.8 g/dL (12.0-16.0); LYMPHOCYTES # (AUTO) 2.2 10^3/uL (1.5-3.5); LYMPHOCYTES % (AUTO) 50.2 %; MEAN CORPUSCULAR HEMOGLOBIN 29.2 pg (27.0-31.0); MEAN CORPUSCULAR HGB CONC 31.4 g/dL (32.0-36.0); MEAN CORPUSCULAR VOLUME 92.7 fL (81.0-99.0); MEAN PLATELET VOLUME 11.9 fL (7.9-10.8); MONOCYTES # (AUTO) 0.5 10^3/uL (0.0-1.0); MONOCYTES % (AUTO) 10.9 %; NEUTROPHILS # (AUTO) 1.5 10^3/uL (1.5-6.6); NEUTROPHILS % (AUTO) 34.4 %; PLT - PLATELET COUNT 220 10^3/uL (130-450); RED BLOOD COUNT 4.39 10^6/uL (4.20-5.40); RED CELL DISTRIBUTION WIDTH 13.8 % (12.0-15.0); WHITE BLOOD COUNT 4.3 x10^3/uL (4.8-10.8)
[2024-01-01 15:32] LABS: BILIRUBIN,DIRECT < 0.10 mg/dL (0.03-0.18)
[2024-01-01 15:39] LABS: CRP - C-REACTIVE PROTEIN < 0.5 mg/dL (<0.5)
[2024-01-01 15:42] LABS: THYROID STIMULATING HORMONE 5.66 uIU/mL (0.34-5.60)
[2024-01-01 15:45] LABS: % IRON SATURATION 23 % (20-50); ALBUMIN 4.3 g/dL (3.2-5.5); ALBUMIN/GLOBULIN RATIO 1.9 (1.0-2.2); ALKALINE PHOSPHATASE 36 IU/L (42-121); ALT ALANINE AMINOTRANSFERASE 13 IU/L (10-60); AST ASPARTATE AMINOTRANSFERASE 17 IU/L (10-42); BILIRUBIN,TOTAL 0.5 mg/dL (0.2-1.0); BUN - BLOOD UREA NITROGEN 19 mg/dL (6-20); CALCIUM 9.7 mg/dL (8.5-10.3); CARBON DIOXIDE - CO2 29 mmol/L (21-32); CHLORIDE 100 mmol/L (101-111); CHOL/HDL RATIO 3.7 (<4.4); CHOLESTEROL 344 mg/dL; CREATININE 0.6 mg/dL (0.6-1.3); GFR - MDRD 98 (>89); GLUCOSE 88 mg/dL (74-104); HDL CHOLESTEROL 94 mg/dL; IRON 79 ug/dL (50-212); LDL CHOLESTEROL,CALCULATED 231 mg/dL; LDL/HDL RATIO 2.5 (<4.4); PHOSPHORUS 4.2 mg/dL (2.5-5.0); POTASSIUM 3.5 mmol/L (3.5-4.5); SODIUM 136 mmol/L (135-145); TOTAL IRON BINDING CAPACITY 342 ug/dL (250-450); TOTAL PROTEIN 6.6 g/dL (6.4-8.9); TRANSFERRIN 244 mg/dL (203-362); TRIGLYCERIDES 95 mg/dL (48-352); VLDL CHOLESTEROL 19 mg/dL
[2024-01-01 15:50] LABS: FERRITIN 44.1 ng/mL (11.0-306.8)
[2024-01-01 22:02] LABS: ESTIMATED AVERAGE GLUCOSE 114 mg/dL (70-100); HEMOGLOBIN A1c% 5.6 % (4.27-6.07)
[2024-01-02 08:19] LABS: CALCIUM IONIZED SERUM 4.8 mg/dL (4.5-5.6); DHEA-SULFATE 51.2 ug/dL (20.4-186.6); ESTRADIOL 26.8 pg/mL (0.0-54.7)
[2024-01-02 15:09] LABS: VITAMIN D 25-HYDROXY 71.4 ng/mL (30.0-100.0)
== END 2024-01-01 07:44 | disposition home or self-care (01) ==
LOC: LAB.S 07:43
PROVIDERS: ATTEND Internal Medicine
DX: R53.82 Chronic fatigue, unspecified (principal); M81.0 Age-related osteoporosis without current pathological fracture; R20.2 Paresthesia of skin; R20.0 Anesthesia of skin; E78.5 Hyperlipidemia, unspecified
CPT/HCPCS: 36415; 80053; 80061; 82248; 82306; 82330; 82607; 82627; 82670; 82728; 82746; 83036; 83090; 83540; 83721; 84100; 84403; 84439; 84443; 84466; 84481; 85025; 85651; 86140